=== PATIENT | female | born 1960 | race Caucasian/White ===

== ENCOUNTER 2016-11-22 14:04 | Emergency (ER) | payer BC ==
--- NOTE | 2016-11-22 14:56 | UC ---
Knee Pain HPI - HPI Summary HPI Summary: Patient presents s/p trauma to the right knee. She fell moving a bed and hit the right side of her knee somehow. She states the pain radiates up the outter thigh and down the side of her lower leg. She reports a large bruise on the side of her knee. She states she has been able to walk but is limping. She also states she bumped the side oh her head, but did not have any LOC. She does complain of headache that started after she hit her head, but states it came on slowly and is not the worse headache of her life. She denies nausea, blurred vision, numbness, tingling or weakness of her arms or legs other than stated above. - History of Current Complaint Chief Complaint: UCLowerExtremity Stated Complaint: FELL/KNEE PAIN Time Seen by Provider: 11/22/16 14:36 Hx Obtained From: Patient ?: No Onset/Duration: Sudden Onset, Lasting Hours Severity Initially: Moderate Severity Currently: Moderate Character: Dull, Aching, Throbbing Aggravating Factor(s): Weight Bearing Alleviating Factor(s): Rest, Cold Associated Signs And Symptoms: Positive: Swelling, Redness, Bruising Able to Bear Weight: Yes - Risk Factors Septic Arthritis Risk Factor: Negative Gout Risk Factor: Negative - Allergies/Home Medications Allergies/Adverse Reactions: Allergies Allergy/AdvReac Type Severity Reaction Status Date / Time Amoxicillin [From Augmentin] Allergy Vomiting Verified 11/22/16 14:15 Clavulanic Acid Allergy Vomiting Verified 11/22/16 14:15 [From Augmentin] Meperidine [From Demerol HCl] Allergy Vomiting Verified 11/22/16 14:15 Morphine and Related Allergy Dizziness Verified 11/22/16 14:15 Home Medications: Home Medications Cholecalciferol [Vitamin D] 1,000 unit PO 11/22/16 [History] Levothyroxine TAB* [Synthroid TAB*] 88 mcg PO 0800 11/22/16 [History Confirmed 11/22/16] Multiple Vitamins W/ Minerals [Multivitamin Women 50+] 1 tab PO 11/22/16 [ History] Omeprazole 40 mg PO 11/22/16 [History] PMH/Surg Hx/FS Hx/Imm Hx Previously Healthy: Yes - Surgical History Surgical History: Yes Surgery Procedure, Year, and Place: tubal ligation. external fixator for broken pelvic - Family History Known Family History: Positive: Cardiac Disease, Hypertension, Diabetes - Social History Occupation: Employed Full-time Lives: Alone Alcohol Use: Rare Substance Use Type: None Smoking Status (MU): Never Smoked Tobacco Review of Systems Constitutional: Negative Skin: Negative Eyes: Negative ENT: Negative Respiratory: Negative Cardiovascular: Negative Gastrointestinal: Negative Genitourinary: Negative Motor: Negative Neurovascular: Negative Musculoskeletal: Arthralgia, Decreased ROM, Edema, Other: - . Neurological: Negative Psychological: Negative All Other Systems Reviewed And Are Negative: Yes Physical Exam Triage Information Reviewed: Yes Vital Signs: Initial Vital Signs Temp 98.4 F 11/22/16 14:10 Pulse 74 11/22/16 14:10 Resp 18 11/22/16 14:10 BP 130/66 11/22/16 14:10 Pulse Ox 97 11/22/16 14:10 Eye Exam: Normal ENT Exam: Normal Dental Exam: Normal Neck exam: Normal Neck: Positive: 1 Respiratory Exam: Normal Cardiovascular Exam: Normal Abdominal Exam: Normal Musculoskeletal Exam: Other - right knee inspevction; brusing noted on lateral aspect. marroon/purple in color. soft tissue swelling noted. tenderness on palpation. rom; decreased flexion to approximatly 45 degrees, extension to 10 degress. negative anterior and posterior draw signs. vasc; no edema. neuro; no decreased sensation Neurological Exam: Normal Psychological Exam: Normal Skin Exam: Normal Knee Pain Course/Dx - Course Course Of Treatment: Patient presents s/p trauma to the right knee, xrays were obtained and negative for fracture. placed in immobilizer. follow up with ortho. pain addressed. Treated for cellulitis with keflex. Patient lives in [place] a disc of the xray was provided and she was instructed to follow up. The xray results were discussed with her. Discharged in stable condition. - Differential Dx/Diagnosis Differential Diagnosis/HQI/PQRI: Cellulitis, Contusion, Sprain, Strain Provider Diagnoses: sprain. strain. cellulitis. contusion Discharge - Discharge Plan Condition: Stable Disposition: HOME Prescriptions: Cephalexin CAP* [Keflex CAP*] 500 mg PO QID #40 cap Patient Education Materials: Knee Pain (ED), Contusion in Adults (ED) Referrals: Non Staff,Doctor [Primary Care Provider] - Additional Instructions: You will need to follow up with your PCP on Thursday.
--- NOTE | 2016-11-22 15:22 | RAD ---
HISTORY: Right knee pain and trauma COMPARISONS: None VIEWS: 4, Frontal, lateral, axial, and oblique views of the right knee FINDINGS: BONE DENSITY: Normal. BONES: There is no displaced fracture. JOINTS: There is no arthropathy. There is no suprapatellar joint effusion or lipohemarthrosis. ALIGNMENT: There is no dislocation. SOFT TISSUES: Unremarkable. OTHER FINDINGS: None. IMPRESSION: NO ACUTE OSSEOUS INJURY. IF SYMPTOMS PERSIST, RECOMMEND REPEAT IMAGING.
== END 2016-11-22 15:40 | disposition home or self-care (01) ==
LOC: UCEAST 14:04
DX: S83.91XA Sprain of unspecified site of right knee, initial encounter (principal); Z88.1 Allergy status to other antibiotic agents; W22.8XXA Striking against or struck by other objects, initial encounter; Y92.9 Unspecified place or not applicable; S80.01XA Contusion of right knee, initial encounter
CPT/HCPCS: 99203; G0463